=== PATIENT | female | born 1985 | race Caucasian/White ===

== ENCOUNTER → 2020-10-30 | Outpatient (CLI) | payer BC ==
--- NOTE | 2020-10-30 08:36 | RAD ---
EXAM: ULTRASOUND ABDOMEN LIMITED CLINICAL HISTORY: Right upper quadrant abdominal pain COMPARISON: None available. TECHNIQUE: Limited ultrasound examination of the right upper quadrant of the abdomen was performed. FINDINGS: The liver is mildly enlarged measuring 21.2 cm and is diffusely increased in echogenicity. No focal l iver lesion. Main portal vein is patent. Gallbladder is nondistended. No cholelithiasis or sludge. Gallbladder wall is normal in thickness theresa suring 1.3 mm. Common bile duct is normal measuring 5 mm. No intrahepatic biliary duct dilatation. The right kidney measures 13.4 x 6.2 x 4.7 cm. There is normal echogenicity and cortical thickness. N o hydronephrosis. The pancreas, abdominal aorta, and inferior vena cava are obscured by bowel gas. IMPRESSION: 1. Hepatomegaly and hepatic steatosis. 2. Normal gallbladder. 3. Poorly visualized pancreas, abdominal aorta, and inferior vena cava due to bowel gas Electronically signed by: Patricia Carlos MD (10/30/2020 8:33 AM) [id number]
== END ==
LOC: US 07:47
PROVIDERS: ATTEND Obstetrics & Gynecology
DX: R16.0 Hepatomegaly, not elsewhere classified (principal); K76.0 Fatty (change of) liver, not elsewhere classified
CPT/HCPCS: 76705